=== PATIENT | male | born 2000 | race Caucasian/White ===

== ENCOUNTER 2023-08-07 11:27 | Emergency (ER) | payer SELFPAY ==
[~2023-08-07] VITALS: Ht 172.7 cm; Wt 78.6 kg
[2023-08-07 11:29] VITALS: BP 133/93; TEMP 97.8; O2SAT 97
[2023-08-07 12:20] LABS: BASO % 0.1 % (0.0-1.0); EOS # 0.1 10^3/uL (0.0-0.5); EOS % 0.5 % (0.0-3.0); HEMATOCRIT 46.9 % (42.0-52.0); HEMOGLOBIN 16.3 g/dl (13.5-17.5); LYMPH # 2.5 10^3/uL (1.5-5.0); LYMPH % 26.8 % (24.0-44.0); MEAN CORPUSCULAR HEMOGLOBIN 30.1 pg (27.0-33.0); MEAN CORPUSCULAR HGB CONC 34.8 g/dl (32.0-36.5); MEAN CORPUSCULAR VOLUME 86.7 fl (80.0-96.0); MONO # 1.4 10^3/uL (0.0-0.8); MONO % 14.7 % (2.0-8.0); NEUTROPHILS # 5.4 10^3/uL (1.5-8.5); NEUTROPHILS % 57.6 % (36.0-66.0); PLATELET COUNT, AUTOMATED 170 10^3/uL (150-450); RED BLOOD COUNT 5.41 10^6/uL (4.30-6.10); WHITE BLOOD COUNT 9.3 10^3/uL (4.0-10.0)
[2023-08-07 12:46] LABS: LIPASE 30 U/L (12-53)
[2023-08-07 12:49] LABS: ALBUMIN 4.3 G/DL (3.2-5.2); ALKALINE PHOSPHATASE 85 U/L (46-116); ALT/SGPT 43 U/L (7.0-40); AST/SGOT 15 U/L (<34); BILIRUBIN,DIRECT 0.3 MG/DL (<0.4); BILIRUBIN,TOTAL 0.9 MG/DL (0.3-1.2); BLOOD UREA NITROGEN 13 MG/DL (9-23); CALCIUM LEVEL 9.3 MG/DL (8.5-10.1); CARBON DIOXIDE LEVEL 28 MMOL/L (20-31); CHLORIDE LEVEL 103 MMOL/L (98-107); CREATININE FOR GFR 0.89 MG/DL (0.70-1.30); GLOMERULAR FILTRATION RATE > 60.0 (>60); GLUCOSE, FASTING 85 MG/DL (60-100); POTASSIUM SERUM 4.1 MMOL/L (3.5-5.1); SODIUM LEVEL 137 MMOL/L (136-145); TOTAL PROTEIN 8.3 G/DL (5.7-8.2)
[2023-08-07] MEDS: ACETAMINOPHEN *IV* 1,000 MG in IV 1 EA IV ONE (13:06)
[2023-08-07] MEDS ORDERED: ISOVUE-370 76% 100ML VIAL As Ordered ONE (13:07)
[2023-08-07] MEDS: MAGNESIUM CITRATE 300ML BTL PO ONE (14:55)
== END 2023-08-07 15:00 | disposition home or self-care (01) ==
LOC: M ED 11:27
DX: K59.00 Constipation, unspecified (principal)
CPT/HCPCS: 74177; 80048; 80076; 83690; 85025; 96374; 99284; J0131; Q9967

== ENCOUNTER 2023-10-03 20:15 | Emergency (ER) | payer OTHER, SELFPAY ==
[~2023-10-03] VITALS: Ht 165.1 cm; Wt 73.1 kg
[2023-10-04] MEDS: IBUPROFEN 600MG TAB PO ONE (05:15)
[2023-10-04 05:18] VITALS: BP 124/76; TEMP 98.8; O2SAT 98
== END 2023-10-04 05:22 | disposition home or self-care (01) ==
LOC: M ED 20:15
DX: S90.32XA Contusion of left foot, initial encounter (principal); Y92.9 Unspecified place or not applicable; Y93.9 Activity, unspecified; Y99.0 Civilian activity done for income or pay